=== PATIENT | male | born 1980 | race African-American/Black ===

== ENCOUNTER 2025-02-05 19:08 | Emergency (ER) | payer MEDICAID ==
[~2025-02-05] VITALS: Ht 182.9 cm; Wt 113.0 kg
[2025-02-05 19:24] VITALS: O2SAT 100
[2025-02-05] MEDS: BACITRACIN ZINC OINT UDPKT TOP ONE (21:00)
[2025-02-05] MEDS: LIDOCAINE HCL/PF 1% 10 MG/ML 5ML VIAL INFIL ONE (21:00)
[2025-02-05] MEDS: IBUPROFEN 600MG TABLET PO ONE (21:00)
[2025-02-05] MEDS: TETANUS, DIPHTHERIA, PERTUSSIS VAC/PF 0.5ML (>10YR OLD) IM ONE (21:29)
[2025-02-05] MEDS ORDERED: SULF1TAB48 MT (22:24)
[2025-02-05] MEDS ORDERED: BO1 TP (22:24)
[2025-02-05 23:04] VITALS: BP 154/97; PULSE 90; RESP 18; TEMP 37; O2SAT 99
== END 2025-02-05 23:11 | disposition home or self-care (01) ==
LOC: ER 19:08
DX: S91.312A Laceration without foreign body, left foot, initial encounter (principal); I11.0 Hypertensive heart disease with heart failure; I50.9 Heart failure, unspecified; W25.XXXA Contact with sharp glass, initial encounter; Y92.009 Unspecified place in unspecified non-institutional (private) residence as the place of occurrence of the external cause; Y93.89 Activity, other specified; Y99.8 Other external cause status
CPT/HCPCS: 73620; 90715; 12001; 90471; 99283; J2003; Z7610 ×4

== ENCOUNTER 2025-03-30 22:15 | Emergency (ER) | payer MEDICAID ==
[~2025-03-30] VITALS: Ht 182.9 cm; Wt 121.0 kg
[~2025-03-30 22:15] MED LIST: BO1 TP; SULF1TAB48 MT
[2025-03-30 22:32] VITALS: O2SAT 100
[2025-03-30 23:23] VITALS: BP 175/126; PULSE 96; RESP 18; TEMP 36.9; O2SAT 100
== END 2025-03-31 02:01 | disposition left against medical advice (07) ==
LOC: ER 22:15
DX: K08 Other disorders of teeth and supporting structures (principal); R42 Dizziness and giddiness; I11.9 Hypertensive heart disease without heart failure; I50.9 Heart failure, unspecified; Z53.21 Procedure and treatment not carried out due to patient leaving prior to being seen by health care provider